=== PATIENT | male | born 1935 | race Caucasian/White ===

== ENCOUNTER 2019-08-01 09:55 | Emergency (ER) | payer MEDICARE ==
--- OUTSIDE RECORDS SUMMARY | 2019-08-01 10:40 | XMS REPORT | Continuity of Care Document ---
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 Chronic renal failure Jarrett Langford MD Onset: 11/29/2011 Impaired fasting glycaemia Jarrett Langford MD Onset: 11/29/2011 Diffuse cervicobrachial syndrome Jarrett Langford MD 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/2012 Type 2 diabetes mellitus Onset: 07/05/2016 Social History Type Date Description Comments Sex Unknown Tobacco Use Start: Unknown Denies Smoking ETOH Use Denies alcohol use Tobacco Use Start: Unknown Patient has never smoked Recreational Drug Use Never Used Drugs Smoking Status Reviewed: 07/26/17 Patient has never smoked Allergies, Adverse Reactions, Alerts Description No Known Drug Allergies Medications Active Medications SIG Qnty Indications Ordering Date Provider Lipitor tab 1 by mouth 90tabs Jarrett Langford MD 04/01/2019 40mg Tablets every evening Onetouch Ultra Blue use three times a 300units E11.21 Jarrett Langford MD 2018 day directed Strips Glucose Meter Test as directed every 300units Jarrett Langford MD 02/05/2018 Strips Advanced day Strips Valsartan-Hydrochlor tab 1 by mouth 90tajuliette Langford MD 04/04/2017 othiazide every day 160-12.5mg Tablets Baclofen 1 tab by mouth 90tabs Jarrett Langford MD 04/04/2017 10mg Tablets three times a day as needed leg cramps Januvia tab 1 by mouth 90tabs Jarrett Langford MD 10/19/2015 50mg Tablets every morning Onetouch Ultra Blue use as directed 100units Jarrett Langford MD 09/25/2013 daily Strips One Touch Lancets as dorected up to 150units Jarrett Langford MD 01/29/2013 bid for 250.01 Needle Aspirin 1 po qd 90tabs Jarrett Langford MD 01/04/2010 81mg Tablets Vitamin D-3 Super daily otc Jarrett Langford MD 10/05/2009 Strength 2000Unit Tablets Carson-Citrate Jarrett Langford MD 10/05/2009 150mg Capsules Toprol XL 1 by mouth every 90tabs Jarrett Langford MD 08/20/2008 100mg day Tablets ER 24HR Tricor 1 by mouth every 90tabs Jarrett Langford MD 08/20/2008 145mg Tablets day Flomax 1 by mouth every 90caps Jarrett Langford MD 08/20/2008 0.4mg Capsules day Multi For Him 1 by mouth every Unknown day Tablets Medications Administered in Office Medication SIG Qnty Indications Ordering Provider Date H1N1 Administration-Use Jarrett Langford MD 08/27/2009 Injection Immunizations CPT Code Status Date Vaccine Reaction Lot # [id number] Given 07/09/2019 Influenza Virus (Afluria) [id number] Split Virus 3 Years Of Age And Older 06489 Given 07/09/2019 Influenza Virus Vaccine, Quadrivalent, Split, Preservative Free 11661 Given 08/22/2018 Pneumovax Polyvalent [place] [id number] [place] [address] Given 08/22/2018 Pneumovax Polyvalent Inj Im Q2035 Given 07/02/2018 Influenza Virus (Afluria) Split Virus 3 Years Of Age And Older Q2035 Given 07/02/2018 Influenza Virus (Afluria) [id number] Split Virus 3 Years Of Age And Older 08271 Given 07/02/2018 Influenza Virus Vaccine, Quadrivalent, Split, Preservative Free Q2035 Given 06/11/2017 Influenza Virus (Afluria) Split Virus 3 Years Of Age And Older Q2035 Given 06/11/2017 Influenza Virus (Afluria) Split Virus 3 Years Of Age And Older Q2037 Given 06/12/2016 Influenza Vaccine [id number] (Fluvirin) 3 Years Of Age Or Older Q2035 Given 06/04/2015 Influenza Virus (Afluria) [id number] Split Virus 3 Years Of Age And Older 43267 Given 04/06/2015 Pneumococcal Conjugate [id number] Vaccine 13 Valent For Intramuscular Use 45905 Given 09/22/2014 [place] [address] Given 06/05/2014 Pneumovax Polyvalent Inj Im Q2037 Given 06/05/2014 Influenza Vaccine [id number] (Fluvirin) 3 Years Of Age Or Older Q2037 Given 06/05/2014 Influenza Vaccine (Fluvirin) 3 Years Of Age Or Older 50020 Given 09/25/2013 Zostavax Done at [facility] Q2037 Given 09/24/2013 Influenza Vaccine 9h2gx (Fluvirin) 3 Years Of Age Or Older Q2038 Given 06/03/2013 Influenza Vaccine [id number] (Fluzone) Administered Age 3 And Older Q2037 Given 05/23/2012 Influenza Vaccine (Fluvirin) 3 Years Of Age Or Older Q2037 Given 05/23/2012 Influenza Vaccine [id number] (Fluvirin) 3 Years Of Age Or Older Q2036 Given 05/26/2011 Flulaval [id number] 60711 Given 11/22/2010 Tetanus,Diphtheria,Adut/Ad [id number] ol Pertussis 97206 Given 06/16/2010 Influenza Vaccine [id number] 84575 Given 05/13/2009 Influenza Vaccine [id number] 25735 Given 08/20/2008 [place] [address] Given 08/20/2008 Tetanus Shot 19031 Given 08/20/2008 Influenza Vaccine 47500 Given 06/19/2007 Influenza Vaccine [id number] Vital Signs Date Vital Result Comment 07/09/2019 8:59am BP Systolic 138 mmHg BP Diastolic 70 mmHg Heart Rate 80 /min Height 70 inches 5'10" Weight 219.00 lb BMI (Body Mass Index) 31.4 kg/m2 O2 % BldC Oximetry 97 % 04/01/2019 9:55am BP Systolic 122 mmHg BP Diastolic 58 mmHg Heart Rate 105 /min Height 70 inches 5'10" Weight 221.00 lb BMI (Body Mass Index) 31.7 kg/m2 O2 % BldC Oximetry 94 % Results Test Acquired Date Facility Test Result H/L Range Note CMP W/GFR 06/27/2019 [facility] Glucose 151 mg/dL High 65-99 1, [address] [place] [address] [phone] Urea Nitrogen (BUN) 44 mg/dL High 7-25 Creatinine 1.72 mg/dL High 0.70-1.11 3 eGFR Non-Afr. Spanish 36 mL/min/1.73m2 Low > Or = 60 eGFR 41 mL/min/1.73m2 Low > Or = 60 BUN/Creatinine Ratio 26 (calc) High 6-22 Sodium 136 mmol/L Normal 135-146 Potassium 5.0 mmol/L Normal 3.5-5.3 Chloride 100 mmol/L Normal 98-110 Carbon Dioxide 30 mmol/L Normal 20-32 Calcium 9.9 mg/dL Normal 8.6-10.3 Protein, Total 6.7 g/dL Normal 6.1-8.1 Albumin 4.1 g/dL Normal 3.6-5.1 Globulin 2.6 g/dL(calc) Normal 1.9-3.7 Albumin/Globulin Ratio 1.6 (calc) Normal 1.0-2.5 Bilirubin, Total 1.3 mg/dL High 0.2-1.2 Alkaline Phosphatase 36 U/L Low 40-115 Ast 25 U/L Normal 10-35 Alt 22 U/L Normal 9-46 CBC 06/27/2019 [facility] White 6.9 Normal 3.8-10.8 (H/H,RBC,Indices,WBC,PLT) [address] Blood Thousand/[place] [address] Count Red Blood Cell Count 4.70 Million/uL Normal 4.20-5.80 Hemoglobin 14.9 g/dL Normal 13.2-17.1 Hematocrit 43.5 % Normal 38.5-50.0 MCV 92.6 fL Normal 80.0-100.0 MCH 31.7 pg Normal 27.0-33.0 MCHC 34.3 g/dL Normal 32.0-36.0 RDW 11.7 % Normal 11.0-15.0 Platelet Count 269 Thousand/uL Normal 140-400 MPV 12.1 fL Normal 7.5-12.5 Lipid Panel 06/27/2019 [facility] Cholesterol, Total 174 mg/dL Normal <[address] [facility] [place] [address] [phone] HDL Cholesterol 32 mg/dL Low >40 Triglycerides 223 mg/dL High <150 4 LDL-Cholesterol 108 mg/dL(calc) High 5 Chol/HDLC Ratio 5.4 (calc) High <5.0 Non HDL Cholesterol 142 mg/dL(calc) High <130 6 Laboratory test 06/27/2019 [facility] Creatine Kinase, 42 U/L Low 44-[address] Total [facility] [place] [id number] [phone] Hemoglobin A1c 6.3 %oftotalHgb High <5.7 7 Enhanced PDF Report [id number] SEE IMAGE Basic Metabolic 03/25/2019 Old DO Not Use [facility] Sodium 139 mmol/L 135-146 8 [address] [place] [address] [phone] Potassium 4.8 mmol/L 3.5-5.3 Chloride 102 mmol/L 98-110 Carbon Dioxide 30 mmol/L 20-32 9 Calcium 10.2 mg/dL 8.6-10.3 Glucose 160 mg/dL High 65-99 10 Urea Nitrogen (BUN) 34 mg/dL High 7-25 Creatinine 1.58 mg/dL High 0.70-1.11 11 BUN/Creatinine Ratio 21.7 6-22 Egfr Non-Afr. Spanish 40 ML/MIN/1.73M2 Low > Or = 60 Egfr 46 ML/MIN/1.73M2 Low > Or = 60 Lipid Panel 03/25/2019 Old DO Not Use [facility] Cholesterol 218 mg/dL High <[address] [place] [address] [phone] HDL Cholesterol 36 mg/dL Low >40 Cholesterol/HDL Ratio 6.1 CALC High <5.0 LDL Chol,Calculated 142 mg/dL High 0-100 12 Triglycerides 263 mg/dL High <150 Non-HDL Cholesterol 182 mg/dL High <130 13 Hepatic Function 03/25/2019 Old DO Not Use [facility] Alkaline 40 U/L 40- 115 [address] [place] [address] [phone] Ast 39 U/L High 10-35 Alt 37 U/L 9-46 Bilirubin,Total 1.1 mg/dL 0.2-1.2 Bilirubin,Direct 0.3 mg/dL High < Or = 0.2 Protein,Total 6.6 g/dL 6.1-8.1 Albumin 4.1 g/dL 3.6-5.1 Globulin,Calculated 2.5 g/dL 1.9-3.7 A/G Ratio 1.6 1.0-2.5 Laboratory test 03/25/2019 Old DO Not Use [facility] Hemoglobin A1c 6.6 % High 0-5.6 14 finding [address] [place] [address] [phone] Creatine Kinase,Total 88 U/L 44-196 1 FASTING FASTING:YES FASTING: YES 2 Fasting reference interval For someone without known diabetes, a glucose value >125 mg/dL indicates that they may have diabetes and this should be confirmed with a follow-up test. 3 For patients >49 years of age, the reference limit for Creatinine is approximately 13% higher for people identified as -Spanish. 4 If a non-fasting specimen was collected, consider repeat triglyceride testing on a fasting specimen if clinically indicated. Julian et al. J. of Clin. Lipidol. 2015;9:129-169. 5 Reference range: <100 Desirable range <100 mg/dL for primary prevention; <70 mg/dL for patients with CHD or diabetic patients with > or = 2 CHD risk factors. LDL-C is now calculated using the Kenneth-Robert calculation, which is a validated novel method providing better accuracy than the Friedewald equation in the estimation of LDL-C. Kenneth MCLAIN et al. TATIANA. 2013;310(19): 0000-0475 (http://education.Annelutfen.com.Micrima/faq/NKA643) 6 For patients with diabetes plus 1 major ASCVD risk factor, treating to a non-HDL-C goal of <100 mg/dL (LDL-C of <70 mg/dL) is considered a therapeutic option. 7 For someone without known diabetes, a hemoglobin A1c value between 5.7% and 6.4% is consistent with prediabetes and should be confirmed with a follow-up test. For someone with known diabetes, a value <7% indicates that their diabetes is well controlled. A1c targets should be individualized based on duration of diabetes, age, comorbid conditions, and other considerations. This assay result is consistent with an increased risk of diabetes. Currently, no consensus exists regarding use of hemoglobin A1c for diagnosis of diabetes for children. 8 FASTING 9 Reference range for high altitude clients: 18-30 mmol/L 10 GLUCOSE REFERENCE RANGE BASED ON FASTING SPECIMEN. 11 The upper reference limit for Creatinine is approximately 13% higher for people identified as -Spanish. 12 LDL-C is now calculated using the Kenneth-Jones calculation, which is a validated novel method providing better accuracy than the Friedewald equation in the estimation of LDL-C. Kenneth MCLAIN et al.TATIANA.2013;310(19):7614-4773 Desirable range <100 mg/dL for primary prevention; <70 mg/dL for patients with CHD or diabetic patients with >or= 2 CHD risk factors. For additional information, please refer to http://education.Apartment List/faq/AAO406(This link is being provided for informational/educational purposes only.) 13 For patients with diabetes plus 1 major ASCVD risk factor, treating to a non-HDL-C goal of <100 mg/dL (LDL-C of <70 mg/ dL) is considered a therapeutic option. 14 For someone without known diabetes, a hemoglobin A1C value of 6.5% or greater indicates that they may have diabetes and this should be confirmed with a follow-up test. For someone with known diabetes, a value <7% indicates that their diabetes is well controlled and a value greater than or equal to 7% indicates suboptimal control. A1C targets should be individualized based on duration of diabetes, age, comorbid conditions, and other considerations. Currently, no consensus exists for use of hemoglobin A1C for diagnosis of diabetes for children. FOR DIAGNOSTIC PURPOSES: A1C VALUE(% OF TOTAL HEMOGLOBIN) INTERPRETATION < 5.7 CONSISTENT WITH THE ABSENCE OF DIABETES 5.7 - 6.4 CONSISTENT WITH INCREASED RISK OF DIABETES > OR = 6.5 CONSISTENT WITH DIABETES FOR MONITORING PURPOSES (ADA GUIDELINNES): A1C VALUE(% OF TOTAL HEMOGLOBIN) INTERPRETATION < 6.5 ACHIEVES STRINGENT GLYCEMIC GOAL < 7.0 ACHIEVES GENERAL GLYCEMIC GOAL(NON- ADULTS) < 8.0 ACHIEVES LESS STRINGENT GLYCEMIC GOAL Procedures Date Code Description Status 03/18/2015 [id number] Bone Mineral Density Test Completed 02/02/2012 [id number] Colonoscopy Completed Medical Devices Description No Information Available Encounters Type Date Location Provider Dx Diagnosis Office Visit 07/09/2019 8:45a Main Office Jarrett Langford MD E78.5 Hyperlipidemia, unspecified E11.21 Type 2 diabetes mellitus with diabetic nephropathy I11.9 Hypertensive heart disease without heart failure N18.9 Chronic kidney disease, unspecified N40.0 Benign prostatic hyperplasia without lower urinry tract symp I34.0 Nonrheumatic mitral (valve) insufficiency Office Visit 04/01/2019 10:15a Main Office Jarrett Langford MD E11.21 Type 2 diabetes mellitus with diabetic nephropathy E78.5 Hyperlipidemia, unspecified I11.9 Hypertensive heart disease without heart failure N18.9 Chronic kidney disease, unspecified N40.0 Benign prostatic hyperplasia without lower urinry tract symp E66.9 Obesity, unspecified Assessments Date Code Description Provider 07/09/2019 E78.5 Hyperlipidemia, unspecified Jarrett Langford MD 07/09/2019 E11.21 Type 2 diabetes mellitus with diabetic nephropathy Jarrett Langford MD 07/09/2019 I11.9 Hypertensive heart disease without heart failure Jarrett Langford MD 07/09/2019 N18.9 Chronic kidney disease, unspecified Jarrett Langford MD 07/09/2019 N40.0 Benign prostatic hyperplasia without lower urinary Jarrett Langford MD tract symptoms 07/09/2019 I34.0 Nonrheumatic mitral (valve) insufficiency Jarrett Langford MD 04/01/2019 E11.21 Type 2 diabetes mellitus with diabetic nephropathy Jarrett Langford MD 04/01/2019 E78.5 Hyperlipidemia, unspecified Jarrett Langford MD 04/01/2019 I11.9 Hypertensive heart disease without heart failure Jarrett Langford MD 04/01/2019 N18.9 Chronic kidney disease, unspecified Jarrett Langford MD 04/01/2019 N40.0 Benign prostatic hyperplasia without lower urinary Jarrett Langford MD tract symptoms 04/01/2019 E66.9 Obesity, unspecified Jarrett Langford MD Plan of Treatment Future Appointment(s):10/29/2019 11:15 am - Jarrett Langford MD at Main [id number] 2:00 pm - Nurse at Main Feawmr0309/29/2019 1:30 pm - Ultrasound at Main Fpakdy7307/09/2019 - Jarrett Langford MDE78.5 Hyperlipidemia, unspecifiedComments:LIPID PANEL TO GOALCONTINUE LIPITORLABS 3 MOTRROJ71.21 Type 2 diabetes mellitus with diabetic nephropathyComments:HAIC 6.4DIET, EXCERCISE, EDUCATION REVIEWED CONTINUE JKHJOCTQ69.9 Hypertensive heart disease without heart failureComments: STABLENO MED CHANGES CONTINUE VALSARTAN/HCTABMP 3 MONTHSCREAT ELEVATED BUT XALOABM13.9 Chronic kidney disease, unspecifiedComments:CREAT 1.7 ABOUT BASELINEMONITOR CARD1 FU NEPHROLOGY BP VXGEMAYB20.0 Benign prostatic hyperplasia without lower urinary tract symptomsComments:STABLEYEARLY RECTAL DUE NEXT VISITFU DR. BLOCK34.0 Nonrheumatic mitral (valve) insufficiencyComments:ECHO BEFORE RTOAllComments:UA DONEFLU VAC GIVENRTO 3 MONTHS FOR CPEGHP,LIPIDS,CK,HAIC,PSA,EKG,HOLTER,ECHO,CAROTID PVR BEFORE VISIT Functional Status Description No Information Available Mental Status Description No Information Available Referrals Description No Information Available
--- OUTSIDE RECORDS SUMMARY | 2019-08-01 10:41 | XMS REPORT | Continuity of Care Document ---
:1935 External Reference #:[id number] Author Name Jarrett Langford MD (transmitted by agent of provider Zita Prado) Address [address] [place] [address] Care Team Providers Name Role Phone Jarrett Langford MD - Internal Medicine Care Team Information Linux Architect Problems Active Problems Provider Date Hyperlipidemia Jarrett [...] day Strips Valsartan-Hydrochlor tab 1 by mouth 90tabs Jarrett Langford MD 04/04/2017 othiazide every day 160-12.5mg Tablets Baclofen 1 tab by mouth 90tabs Elyn Ring, MD 04/04/2017 10mg Tablets three times a day as needed leg cramps Januvia tab 1 by mouth 90tajuliette Langford MD 10/19/2015 50mg Tablets every morning [...] # Q2035 Given 07/09/2019 Influenza Virus (Afluria) [id number] Split Virus 3 Years Of Age And Older 39295 Given 07/09/2019 Influenza Virus Vaccine, Quadrivalent, Split, Preservative Free 44865 Given 08/22/2018 Pneumovax Polyvalent [place] [id number] [place] [address] Given 08/22/2018 Pneumovax Polyvalent Inj Im Q2035 Given 07/02/2018 Influenza Virus (Afluria) Split Virus 3 Years Of Age And Older Q2035 Given 07/02/2018 Influenza Virus (Afluria) [id number] Split Virus 3 Years Of Age And Older 51325 Given 07/02/2018 Influenza Virus Vaccine, Quadrivalent, Split, Preservative Free Q2035 Given 06/11/2017 Influenza Virus (Afluria) Split Virus 3 Years Of Age And Older Q2035 Given 06/11/2017 Influenza Virus (Afluria) Split Virus 3 Years Of Age And Older Q2037 Given 06/12/2016 Influenza Vaccine [id number] (Fluvirin) 3 Years Of Age Or Older Q2035 Given 06/04/2015 Influenza Virus (Afluria) [id number] Split Virus 3 Years Of Age And Older 60613 Given 04/06/2015 Pneumococcal Conjugate [id number] Vaccine 13 Valent For Intramuscular Use 58773 Given 09/22/2014 [place] [address] Given 06/05/2014 Pneumovax Polyvalent Inj Im Q2037 Given 06/05/2014 Influenza Vaccine [id number] (Fluvirin) 3 Years Of Age Or Older Q2037 Given 06/05/2014 Influenza Vaccine (Fluvirin) 3 Years Of Age Or Older 07955 Given 09/25/2013 Zostavax Done at [facility] Q2037 Given 09/24/2013 Influenza Vaccine 9h2gx (Fluvirin) 3 Years Of Age Or Older Q2038 Given 06/03/2013 Influenza Vaccine [id number] (Fluzone) Administered Age 3 And Older Q2037 Given 05/23/2012 Influenza Vaccine (Fluvirin) 3 Years Of Age Or Older Q2037 Given 05/23/2012 Influenza Vaccine [id number] (Fluvirin) 3 Years Of Age Or Older Q2036 Given 05/26/2011 Flulaval [id number] 78746 Given 11/22/2010 Tetanus,Diphtheria,Adut/Ad [id number] ol Pertussis 49775 Given 06/16/2010 Influenza Vaccine [id number] 44897 Given 05/13/2009 Influenza Vaccine [id number] 38521 Given 08/20/2008 [place] [address] Given 08/20/2008 Tetanus Shot 19805 Given 08/20/2008 Influenza Vaccine 53448 Given 06/19/2007 Influenza Vaccine [id number] Vital Signs Date Vital Result Comment 07/09/2019 [...] Result H/L Range Note CMP W/GFR 06/27/2019 [facility] Glucose 151 mg/dL High 65-99 1, [address] [place] [address] [phone] Urea Nitrogen (BUN) 44 mg/dL High 7-25 Creatinine 1.72 mg/dL High 0.70-1.11 3 eGFR Non-Afr. Sammarinese 36 mL/min/1.73m2 Low > Or = 60 [...] Alt 22 U/L Normal 9-46 CBC 06/27/2019 [facility] White 6.9 Normal 3.8-10.8 (H/H,RBC,Indices,WBC,PLT) [address] Blood Thousand/[place] [address] Count Red Blood Cell Count 4.70 Million/uL Normal 4.20-5.80 Hemoglobin 14.9 g/dL Normal 13.2-17.1 Hematocrit 43.5 % Normal 38.5-50.0 MCV 92.6 fL Normal 80.0-100.0 MCH 31.7 pg Normal 27.0-33.0 MCHC 34.3 g/dL Normal 32.0-36.0 RDW 11.7 % Normal 11.0-15.0 Platelet Count 269 Thousand/uL Normal 140-400 MPV 12.1 fL Normal 7.5-12.5 Lipid Panel 06/27/2019 [facility] Cholesterol, Total 174 mg/dL Normal <[address] [place] [address] [phone] HDL Cholesterol 32 mg/dL Low >40 Triglycerides 223 mg/dL High <150 4 LDL-Cholesterol 108 mg/dL(calc) High 5 Chol/HDLC Ratio 5.4 (calc) High <5.0 Non HDL Cholesterol 142 mg/dL(calc) High <130 6 Laboratory test 06/27/2019 [facility] Creatine Kinase, 42 U/L Low 44-[address] [place] [address] [phone] Hemoglobin A1c 6.3 %oftotalHgb High <5.7 7 Enhanced PDF Report [id number] SEE IMAGE Basic Metabolic 03/25/2019 Old DO Not Use [facility] Sodium 139 mmol/L 135-146 [address] [place] [address] [phone] Potassium 4.8 mmol/L 3.5-5.3 Chloride 102 mmol/L 98-110 Carbon Dioxide 30 mmol/L 20-32 9 Calcium 10.2 mg/dL 8.6-10.3 Glucose 160 mg/dL High 65-99 10 Urea Nitrogen (BUN) 34 mg/dL High 7-25 Creatinine 1.58 mg/dL High 0.70-1.11 11 BUN/Creatinine Ratio 21.7 6-22 Egfr Non-Afr. Sammarinese 40 ML/MIN/1.73M2 Low > Or = 60 Egfr 46 ML/MIN/1.73M2 Low > Or = 60 Lipid Panel 03/25/2019 Old DO Not Use [facility] Cholesterol 218 mg/dL High <[address] [place] [address] [phone] HDL Cholesterol 36 mg/dL Low >40 Cholesterol/HDL Ratio 6.1 CALC High <5.0 LDL Chol,Calculated 142 mg/dL High 0-100 12 Triglycerides 263 mg/dL High <150 Non-HDL Cholesterol 182 mg/dL High <130 13 Hepatic Function 03/25/2019 Old DO Not Use [facility] Alkaline 40 U/L 40- [address] [place] [address] [phone] Ast 39 U/L High 10-35 Alt 37 U/L 9-46 Bilirubin,Total 1.1 mg/dL 0.2-1.2 Bilirubin,Direct 0.3 mg/dL High < Or = 0.2 Protein,Total 6.6 g/dL 6.1-8.1 Albumin 4.1 g/dL 3.6-5.1 Globulin,Calculated 2.5 g/dL 1.9-3.7 A/G Ratio 1.6 1.0-2.5 Laboratory test 03/25/2019 Old DO Not Use [facility] Hemoglobin A1c 6.6 % High 0-5.6 [address] [place], [place] [id number] [phone] Creatine Kinase,Total 88 U/L 44-196 1 FASTING FASTING:YES FASTING: YES 2 Fasting reference interval For someone without known diabetes, a glucose value >125 mg/dL indicates that they may have diabetes and this should be confirmed with a follow-up test. 3 For patients >49 years of age, the reference limit for Creatinine is approximately 13% higher for people identified as -Sammarinese. 4 If a non-fasting specimen was collected, [...] LDL-C. Kenneth MCLAIN et al. TATIANA. 2013;310(19): 8632-7849 (http://education.Kalido.Fik Stores/faq/ITV450) 6 For patients with diabetes plus 1 [...] approximately 13% higher for people identified as -Sammarinese. 12 LDL-C is now calculated using the Kenneth-Jones calculation, which is a validated novel method providing better accuracy than the Friedewald equation in the estimation of LDL-C. Kenneth SS et al.TATIANA.2013;310(19):1918-0641 Desirable range <100 mg/dL for primary prevention; <70 mg/dL for patients with CHD or diabetic patients with >or= 2 CHD risk factors. For additional information, please refer to http://education.Kalido.Fik Stores/faq/VKW100(This link is being provided for informational/educational purposes [...] GOAL Procedures Date Code Description Status 03/18/2015 [id number] Bone Mineral Density Test Completed 02/02/2012 [id number] Colonoscopy Completed Medical Devices Description No Information [...] unspecified Assessments Date Code Description Provider 07/09/2019 [facility] Hyperlipidemia, unspecified Jarrett Langford MD 07/09/2019 E11.21 [...] Langford MD 04/01/2019 E78.5 Hyperlipidemia, unspecified Jarrett Langfrod MD 04/01/2019 I11.9 Hypertensive heart disease without heart failure Jarrett Langford MD 04/01/2019 N18.9 Chronic kidney disease, unspecified Jarrett Langford MD 04/01/2019 N40.0 Benign prostatic hyperplasia without lower urinary Jarrett Langford MD tract symptoms 04/01/2019 E66.9 Obesity, unspecosmin Langford MD Plan of Treatment Future Appointment(s):10/29/2019 11:15 am - Jarrett Langford MD at Main [id number] 2:00 pm - Nurse at Main Jpeypj9209/29/2019 1:30 pm - Ultrasound at Main Jtfadn2207/09/2019 - Jarrett Langford MDE78.5 Hyperlipidemia, hfuqqsytbawB60.21 Type 2 diabetes mellitus with diabetic dnyuwcjgdsaT48.9 Hypertensive heart disease without heart ccyiyhgG20.9 Chronic kidney disease, haawessadbsS61.0 Benign prostatic hyperplasia without lower urinary tract xgmcpccnR14.0 Nonrheumatic mitral (valve) insufficiencyComments:no evidence chf or fluid overloadcont. afterload scrummaster with saba inhibitor, cont. preload reductionwith lasixecho as indicated to assess for progression of valvular decompensation.AllComments:UA DONEFLU VAC GIVENRTO 3 MONTHS FOR CPEGHP,LIPIDS,CK,HAIC,PSA,EKG,HOLTER,ECHO, CAROTID PVR BEFORE VISIT Functional Status Description No Information Available Mental Status Description No Information Available Referrals Description No Information Available
--- OUTSIDE RECORDS SUMMARY | 2019-08-01 10:41 | XMS REPORT | Continuity of Care Document ---
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 Problems Provider Date Hyperlipidemia Jarrett [...] Code Status Date Vaccine Reaction Lot # [id number] Given 08/22/2018 Pneumovax [place] [id number] [place] [address] Given 08/22/2018 Pneumovax Polyvalent Inj Im Q2035 Given 07/02/2018 Influenza Virus (Afluria) Split Virus 3 Years Of Age And Older Q2035 Given 07/02/2018 Influenza Virus (Afluria) [id number] Split Virus 3 Years Of Age And Older 14735 Given 07/02/2018 Influenza Virus Vaccine, Quadrivalent, Split, Preservative Free Q2035 Given 06/11/2017 Influenza Virus (Afluria) Split Virus 3 Years Of Age And Older Q2035 Given 06/11/2017 Influenza Virus (Afluria) Split Virus 3 Years Of Age And Older Q2037 Given 06/12/2016 Influenza Vaccine [id number] (Fluvirin) 3 Years Of Age Or Older Q2035 Given 06/04/2015 Influenza Virus (Afluria) [id number] Split Virus 3 Years Of Age And Older 97424 Given 04/06/2015 Pneumococcal Conjugate [id number] Vaccine 13 Valent For Intramuscular Use 41149 Given 09/22/2014 [place] [address] Given 06/05/2014 Pneumovax Polyvalent Inj Im Q2037 Given 06/05/2014 Influenza Vaccine [id number] (Fluvirin) 3 Years Of Age Or Older Q2037 Given 06/05/2014 Influenza Vaccine (Fluvirin) 3 Years Of Age Or Older 52144 Given 09/25/2013 Zostavax Done at [facility] Q2037 Given 09/24/2013 Influenza Vaccine [id number] (Fluvirin) 3 Years Of Age Or Older Q2038 Given 06/03/2013 Influenza Vaccine [id number] (Fluzone) Administered Age 3 And Older Q2037 Given 05/23/2012 Influenza Vaccine (Fluvirin) 3 Years Of Age Or Older Q2037 Given 05/23/2012 Influenza Vaccine [id number] (Fluvirin) 3 Years Of Age Or Older Q2036 Given 05/26/2011 Flulaval [id number] 44753 Given 11/22/2010 Tetanus,Diphtheria,Adut/Ad [id number] ol Pertussis 50165 Given 06/16/2010 Influenza Vaccine [id number] 69841 Given 05/13/2009 Influenza Vaccine [id number] 99167 Given 08/20/2008 [place] [address] Given 08/20/2008 Tetanus Shot 58295 Given 08/20/2008 Influenza Vaccine 14379 Given 06/19/2007 Influenza Vaccine [id number] Vital Signs Date Vital Result Comment 07/09/2019 [...] H/L Range Note CMP W/GFR 06/27/2019 [facility] Glucose 151 mg/dL High 65-99 1, [address] [place], [place] [id number] [phone] Urea Nitrogen (BUN) 44 mg/dL High 7-25 Creatinine 1.72 mg/dL High 0.70-1.11 3 eGFR Non-Afr. Kazakh 36 mL/min/1.73m2 Low > Or = 60 [...] 22 U/L Normal 9-46 CBC 06/27/2019 [facility] White 6.9 Normal 3.8-10.8 (H/H,RBC,Indices,WBC,PLT) [address] Blood Thousand/[place] [address] Count Red Blood Cell Count 4.70 Million/uL Normal 4.20-5.80 Hemoglobin 14.9 g/dL Normal 13.2-17.1 Hematocrit 43.5 % Normal 38.5-50.0 MCV 92.6 fL Normal 80.0-100.0 MCH 31.7 pg Normal 27.0-33.0 MCHC 34.3 g/dL Normal 32.0-36.0 RDW 11.7 % Normal 11.0-15.0 Platelet Count 269 Thousand/uL Normal 140-400 MPV 12.1 fL Normal 7.5-12.5 Lipid Panel 06/27/2019 [facility] Cholesterol, Total 174 mg/dL Normal <[address] [place] [address] [phone] HDL Cholesterol 32 mg/dL Low >40 Triglycerides 223 mg/dL High <150 4 LDL-Cholesterol 108 mg/dL(calc) High 5 Chol/HDLC Ratio 5.4 (calc) High <5.0 Non HDL Cholesterol 142 mg/dL(calc) High <130 6 Laboratory test 06/27/2019 [facility] Creatine Kinase, 42 U/L Low 44-[address] [place] [address] [phone] Hemoglobin A1c 6.3 %oftotalHgb High <5.7 7 Enhanced PDF Report [id number] SEE IMAGE Basic Metabolic 03/25/2019 Old DO Not Use [facility] Sodium 139 mmol/L 135-[address] [place] [address] [phone] Potassium 4.8 mmol/L 3.5-5.3 Chloride 102 mmol/L 98-110 Carbon Dioxide 30 mmol/L 20-32 9 Calcium 10.2 mg/dL 8.6-10.3 Glucose 160 mg/dL High 65-99 10 Urea Nitrogen (BUN) 34 mg/dL High 7-25 Creatinine 1.58 mg/dL High 0.70-1.11 11 BUN/Creatinine Ratio 21.7 6-22 Egfr Non-Afr. Kazakh 40 ML/MIN/1.73M2 Low > Or = 60 Egfr 46 ML/MIN/1.73M2 Low > Or = 60 Lipid Panel 03/25/2019 Old DO Not Use [facility] Cholesterol 218 mg/dL High <[address] [place] [address] [phone] HDL Cholesterol 36 mg/dL Low >40 Cholesterol/HDL Ratio 6.1 CALC High <5.0 LDL Chol,Calculated 142 mg/dL High 0-100 12 Triglycerides 263 mg/dL High <150 Non-HDL Cholesterol 182 mg/dL High <130 13 Hepatic Function 03/25/2019 Old DO Not Use [facility] Alkaline 40 U/L 40- [address] [place] [address] [phone] Ast 39 U/L High 10-35 Alt 37 U/L 9-46 Bilirubin,Total 1.1 mg/dL 0.2-1.2 Bilirubin,Direct 0.3 mg/dL High < Or = 0.2 Protein,Total 6.6 g/dL 6.1-8.1 Albumin 4.1 g/dL 3.6-5.1 Globulin,Calculated 2.5 g/dL 1.9-3.7 A/G Ratio 1.6 1.0-2.5 Laboratory test 03/25/2019 Old DO Not Use [facility] Hemoglobin A1c 6.6 % High 0-5.6 14 finding [address] [place], [place] [id number] [phone] Creatine Kinase,Total 88 U/L 44-196 1 FASTING FASTING:YES FASTING: YES 2 Fasting reference interval For someone without known diabetes, a glucose value >125 mg/dL indicates that they may have diabetes and this should be confirmed with a follow-up test. 3 For patients >49 years of age, the reference limit for Creatinine is approximately 13% higher for people identified as -Kazakh. 4 If a non-fasting specimen was collected, consider repeat triglyceride testing on a fasting specimen if clinically indicated. Eliel et al. J. of Clin. Lipidol. 2015;9:129-169. 5 Reference range: <100 Desirable range <100 mg/dL for primary prevention; <70 mg/dL for patients with CHD or diabetic patients with > or = 2 CHD risk factors. LDL-C is now calculated using the Kenneth-Jones calculation, which is a validated novel method providing better accuracy than the Friedewald equation in the estimation of LDL-C. Kenneth MCLAIN et al. TATIANA. 2013;310(19): 7721-1106 (http://education.Cardio control.MD Lingo/faq/YPL050) 6 For patients with diabetes plus 1 [...] approximately 13% higher for people identified as -Kazakh. 12 LDL-C is now calculated using the Kenneth-Robert calculation, which is a validated novel method providing better accuracy than the Friedewald equation in the estimation of LDL-C. Kenneth MCLAIN et al.TATIANA.2013;31019):7644-1479 Desirable range <100 mg/dL for primary prevention; <70 mg/dL for patients with CHD or diabetic patients with >or= 2 CHD risk factors. 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 E78.5 Hyperlipidemia, unspecified I11.9 Hypertensive heart disease without heart failure N18.9 Chronic kidney disease, unspecified N40.0 Benign prostatic hyperplasia without lower urinry tract symp E66.9 Obesity, unspecified Assessments Date Code Description Provider 04/01/2019 E11.21 Type 2 diabetes mellitus with diabetic nephropathy Jarrett Langford MD 04/01/2019 E78.5 Hyperlipidemia, unspecified Bhavikyn MD Anastasiya 04/01/2019 I11.9 Hypertensive heart disease without heart failure Jarrett Langford MD 04/01/2019 N18.9 Chronic kidney disease, unspecified Bhavikyn MD Anastasiya 04/01/2019 N40.0 Benign prostatic hyperplasia without lower urinary Jarrett Langford MD tract symptoms 04/01/2019 E66.9 Obesity, unspecified Jarrett Langford MD Plan of Treatment No Information Available Functional Status Description No Information Available Mental Status Description No Information Available Referrals Description No Information Available
[2019-08-01 11:04] VITALS: BP 136/56
--- NOTE | 2019-08-01 11:30 | UC ---
Respiratory Complaint HPI - HPI Summary HPI Summary: Patient is an 84-year-old male presenting with for complaint of cough 2 weeks. Patient states is a dry cough but feels like he should bring something up. He notes cold symptoms that began 2 weeks ago including nasal congestion that has mostly resolved since. Patient notes intermittent numbness at night. Denies shortness of breath. Denies fever and chills. Denies nausea and vomiting. Notes fatigue. Notes eating and drinking normally. Patient is a nonsmoker. Denies history of COPD and other lung disorders. Denies history of asthma and seasonal allergies. - History of Current Complaint Chief Complaint: UCGeneralIllness Stated Complaint: COUGH Hx Obtained From: Patient Pain Intensity: 0 Pain Scale Used: 0-10 Numeric - Allergies/Home Medications Allergies/Adverse Reactions: Allergies Allergy/AdvReac Type Severity Reaction Status Date / Time No Known Allergies Allergy Verified 08/01/19 11:04 Home Medications: Home Medications Atorvastatin* [Lipitor*] 40 mg PO DAILY 08/01/19 [History Confirmed 08/01/19] Fenofibrate Nanocrystallized [Tricor] 145 mg PO DAILY 08/01/19 [History Confirmed 08/01/19] Metoprolol Succinate XL TAB* [Toprol XL TAB*] 25 mg PO DAILY 08/01/19 [History Confirmed 08/01/19] Valsartan TAB* [Diovan TAB*] 160 mg PO DAILY 08/01/19 [History Confirmed ] PMH/Surg Hx/FS Hx/Imm Hx Endocrine History: Dyslipidemia Cardiovascular History: Hypertension - Surgical History Surgical History: None - Social History Alcohol Use: None Substance Use Type: None Smoking Status (MU): Never Smoked Tobacco Review of Systems All Other Systems Reviewed And Are Negative: Yes Constitutional: Positive: Fatigue. Negative: Fever, Chills ENT: Positive: Nasal Discharge - PND. Negative: Sore Throat, Ear Ache, Sinus Congestion, Sinus Pain/Tenderness Respiratory: Positive: Cough - dry, Other - nighttime wheezing. Negative: Shortness Of Breath Cardiovascular: Positive: Negative Gastrointestinal: Positive: Negative Musculoskeletal: Positive: Negative Neurological: Positive: Negative Physical Exam Triage Information Reviewed: Yes Appearance: Well-Appearing, No Pain Distress, Well-Nourished Vital Signs: Initial Vital Signs Temp 97.8 F 08/01/19 11:01 Pulse 77 08/01/19 11:01 Resp 20 08/01/19 11:01 BP 136/56 08/01/19 11:01 Pulse Ox 97 08/01/19 11:01 Vital Signs Reviewed: Yes Eyes: Positive: Conjunctiva Clear ENT: Positive: Hearing grossly normal, Pharynx normal, Nasal drainage - PND, TMs normal, Uvula midline. Negative: Pharyngeal erythema, Nasal congestion, Trismus, Muffled voice, Hoarse voice, Sinus tenderness Neck exam: Normal Neck: Positive: Supple, Nontender, No Lymphadenopathy Respiratory Exam: Normal Respiratory: Positive: Lungs clear, Normal breath sounds, No respiratory distress. Negative: Crackles, Rhonchi, Stridor, Wheezing Cardiovascular Exam: Normal Cardiovascular: Positive: RRR Neurological: Positive: Alert Psychological: Positive: Age Appropriate Behavior Diagnostics - Radiology chest Radiology Interpretation Completed By: Radiologist Summary of Radiographic Findings: IMPRESSION: HYPERINFLATION, CONSISTENT WITH COPD. NO ACTIVE CARDIOPULMONARY DISEASE. Respiratory Course/Dx - Course Course Of Treatment: Suggestive COPD on CXR. No active disease. Patient VS normal and in no respiratory distress. No sputum production per patient. Discussed viral illness with patient and symptomatic treatment. Instructed patient to follow up with pcp if symptoms persist or to go to ED if symptoms worsen. Patient voiced understanding and agreed with treatment plan. - Differential Dx/Diagnosis Provider Diagnosis: Acute bronchitis, Post-nasal drip Discharge ED - Sign-Out/Discharge Documenting (check all that apply): Patient Departure All imaging exams completed and their final reports reviewed: Yes - Discharge Plan Condition: Stable Disposition: HOME Prescriptions: Fluticasone NASAL SPRAY 50MCG* [Flonase NASAL SPRAY 50MCG*] 2 spray BOTH NARES DAILY PRN #1 btl PRN Reason: Congestion Patient Education Materials: Acute Bronchitis (ED) Referrals: Jarrett Langford MD [Primary Care Provider] - If Needed Additional Instructions: As discussed, your cough is likely caused by a virus. Viruses do not respond to antibiotic treatment and usually resolve on their own with time. You may use throat lozenges, tea with honey, hot steam from the shower, and your cough syrup to help relieve coughing. The Flonase nasal spray may help relieve feeling of congestion as well. Follow up with your primary care physician if your symptoms do not begin to resolve within 7 days. Go to the emergency room if you experience new or worsening symptoms, including fever, difficulty breathing, increased mucus production. - Billing Disposition and Condition Condition: STABLE Disposition: Home
== END 2019-08-01 12:38 | disposition home or self-care (01) ==
LOC: UCCORT 09:55
DX: J20.9 Acute bronchitis, unspecified (principal); R09.82 Postnasal drip; I10 Essential (primary) hypertension; E78.5 Hyperlipidemia, unspecified; R91.8 Other nonspecific abnormal finding of lung field; Z79.899 Other long term (current) drug therapy
CPT/HCPCS: 71046; 99202; G0463